=== PATIENT | female | born 1960 | race Caucasian/White ===

== ENCOUNTER 2016-09-17 14:23 | Inpatient (IN) | payer MEDICARE, MEDICAID ==
[~2016-09-17] VITALS: Ht 160 cm; Wt 64.6 kg
[~2016-09-17 14:23] MED LIST: ALBU18HF INH; ASPI-973 PO; AZIT250T4 PO; DIVA500T14 PO; FERR-83 PO; Glycopyrrolate 0.2 MG/ML 1mL Inj ONE; LORA10CA PO; LORA1TAB PO; Lidocaine PF 1% 30 mL Inj ONE; METO-272 PO; NITR0.4T SL; OMEP20CA11 PO; PRE20 PO; Propofol 10,000 mCg/mL 20 mL Inj ONE; QUET200T PO; RANI150C4 PO; TRAZ-118 PO; VENL150C98 PO
[2016-09-17 14:29] VITALS: BP 151/71; PULSE 70; RESP 20; O2SAT 97
[2016-09-17 14:39] LABS: BASOPHILS % (AUTO) 0.1 % (0-3); EOSINOPHILS % (AUTO) 0.2 % (0-5); MONOCYTES % (AUTO) 6.9 % (4-12); Mean Corpuscular Hemoglobin 30.4 pg (27.0-35.0); Mean Corpuscular Volume 89.2 fL (81-100); NEUTROPHILS % (AUTO) 76.4 % (40-74); Platelet Count 290 bil/L (150-400)
[2016-09-17] MEDS ORDERED: ILOP2TAB2 PO (14:40)
[2016-09-17] MEDS ORDERED: QUET300T PO (14:40)
[2016-09-17] MEDS ORDERED: PRAZ1CAP2 PO (14:40)
[2016-09-17] MEDS ORDERED: QUET50TA PO (14:40)
[2016-09-17] MEDS ORDERED: ACET1TAB42 PO (14:40)
[2016-09-17] MEDS ORDERED: QUET300T44 PO (14:40)
[2016-09-17] MEDS ORDERED: LIP40 PO (14:40)
[2016-09-17] MEDS ORDERED: NICO1PAT16 TRANSDERM (14:40)
[2016-09-17] MEDS ORDERED: SYMINH INHALATION (14:40)
[2016-09-17] MEDS ORDERED: PSYL660P17 PO (14:40)
[2016-09-17] MEDS ORDERED: CYCL5TAB PO (14:40)
[2016-09-17] MEDS ORDERED: QUET50TA55 PO (14:40)
[2016-09-17] MEDS ORDERED: LORA0.5T PO (14:40)
[2016-09-17] MEDS ORDERED: Ondansetron 2 mg/mL 2 mL Inj ONE (14:54)
--- NOTE | 2016-09-17 15:27 | ED.REPORT ---
HPI-General Illness Date of Service Sep 17, 2016 ED Provider: Ubaldo Back MD Pt is a 55 y/o female w/ a hx of IBS, mental illness, presenting to the ED c/o N /V/D onset 3 days ago. She c/o associated upper abdominal cramping, headache while vomiting, acid reflux, and has not been able to keep any liquids or medications down. Pt denies hematuria, bloody stool, hematemesis, fever, chills , vision changes, chest pain, SOB, vaginal bleeding or discharge. She has had similar symptoms in the past which were thought to be caused by IBS and GERD. She describes her pain as sharp and non-radiating, without and methods of exacerbation or relief. She does smoke marijuana. Nursing Notes Stated Complaint: NAUSEA, VOMITING Chief Complaint: Female Abdominal Pain Nursing Notes Reviewed: Yes Allergies: Coded Allergies: Serotonin 5HT-3 Antagonists (Verified Allergy, Intermediate, rash, itching , 09/17/16) buspirone (Verified Allergy, Mild, itching, 09/17/16) bupropion (Verified Allergy, Unknown, Rash,Itching,, 09/17/16) sertraline (Verified Allergy, Unknown, Rash,Itching,, 09/17/16) lamotrigine (Verified Adverse Reaction, Mild, itching, 09/17/16) Scheduled Aspirin (Aspirin) 81 Mg Tablet 81 MG PO QAM Atorvastatin (Lipitor) 40 Mg Tablet 40 MG PO HS Budesonide/Formoterol 160-4.5 mcg Inh (Symbicort 160-4.5 mcg Inh) 120 Puff Inhaler 2 PUFF INHALATION BID Divalproex ER (Divalproex ER) 500 Mg Tab.er.24h 1,000 MG PO HS *DAILY DOSING ONLY* Swallowed whole without chewing to avoid local irritation of the mouth and throat. Iloperidone (Fanapt) 2 Mg Tablet 2 MG PO BID Metoprolol Succinate ER (Metoprolol Succinate ER) 50 Mg Tab.er.24h 50 MG PO QAM Nicotine 21 mg/24 hr Patch (Nicotine 21 mg/24 hr Patch) 1 Each Patch.dysq 1 PATCH TRANSDERM DAILY Omeprazole (Omeprazole) 20 Mg Capsule.dr 20 MG PO BIDAC Prazosin (Prazosin) 1 Mg Capsule 1 MG PO HS Quetiapine Fumarate (Seroquel) 300 Mg Tablet 300 MG PO HS Quetiapine Fumarate (Seroquel) 50 Mg Tablet 50 MG PO QAM Ranitidine (Ranitidine) 150 Mg Capsule 150 MG PO HS Trazodone (Trazodone) 100 Mg Tablet 400 MG PO HS Venlafaxine ER (Venlafaxine ER) 150 Mg Cap.er.24h 300 MG PO QAM Scheduled PRN Acetaminophen/Codeine 300-30mg (Acetaminophen/Codeine 300-30mg) 1 Each Tablet 1- 2 TABLET PO Q4H PRN PRN Pain Albuterol Sulfate (Ventolin HFA Inhaler) 200 Puff/18 Gm Inhaler 2 PUFF INH Q4 PRN PRN For Wheezing Cyclobenzaprine (Cyclobenzaprine) 5 Mg Tablet 5 MG PO TID PRN PRN Spasm Loratadine (Claritin) 10 Mg Capsule 10 MG PO DAILY PRN PRN For Congestion Lorazepam (Lorazepam) 0.5 Mg Tablet 0.5-1 MG PO BID PRN PRN For Insomnia Nitroglycerin SL (Nitrostat) 0.4 Mg Tab.subl 0.4 MG SL Q5MIN PRN PRN For Chest Pain Psyllium Husk (Metamucil) 3.4 Gram/5.4 Gram Powder 3.4 GM PO DAILY PRN PRN For Constipation General Time Seen by MD: 15:21 Chief Complaint Other (nvd) Hx Obtained From: Patient, EMS Arrived By: Ambulance Sudden in Onset?: No Onset Occurred: 3 days ago Symptom Duration: Since onset Location: : Abdomen Quality: Cramping Severity: Current: Mild Severity: Maximum: Moderate Similar Sx Previous: Yes Past Medical History Past Medical History Notes: PCP: Dr. Curran Past Medical History Tobacco Dependency Asthma History of Alcoholism IBS GERD Hypertension "Irregular heartbeat" Hx pneumonia Distant hx of seizures Hx hemorrhoids Hx kidney stones Hx UTI Anxiety Bipolar disorder Depression PTSD Dissociative Identity disorder Past Surgical History Hysterectomy with bilateral oophorectomy Cholecystectomy Tonsillectomy Family History noncontributory Smoking History Current Every Day Smoker, Heavy Tobacco Smoker Social History Alcohol Use: In recovery Drug Use: THC Other Social History: Lives alone, Local resident Ambulatory Status Independent Review of Systems Full Review of Systems Constitutional: Denies: Chills, Fever Respiratory: Denies: Non-productive cough, Shortness of breath Cardiovascular: Denies: Chest pain, Dyspnea on exertion GI: Reports: Abdominal pain, Diarrhea, Nausea, Vomiting, Denies: Bloody/tarry stool, Hematemesis, Hematochezia Female: Denies: Hematuria, Vaginal bleeding - abnl, Vaginal discharge Neurologic: Reports: Headache, Denies: Vision change Complete sys rev & neg: except as marked. Physical Exam Constitutional: Well-developed, well-nourished. Not diaphoretic. Head: Normocephalic and atraumatic. Mouth/Throat: Oropharynx is clear and mildly dry. No oropharyngeal exudate. Eyes: EOM are normal. Pupils are equal, round, and reactive to light. Neck: Supple, no tracheal deviation. Cardiovascular: Normal rate, regular rhythm. Equal and intact distal pulses throughout. Pulmonary/Chest: Effort normal and breath sounds normal. No respiratory distress. Abdominal: Soft. No distension. Epigastric tenderness, no focal lower abdominal tenderness or rebound or guarding. Bowel sounds present. Musculoskeletal: Range of motion grossly intact, moving all extremities. Neurological: AOx3. Grossly nonfocal exam. Strength and sensation intact and equal to bilateral upper and lower extremities. Skin: Warm and dry, no rashes or pallor appreciated. Psychiatric: Appropriate mood and affect. Behavior appears normal. Vital Signs Vital Signs Date Time Temp Pulse Resp B/P Pulse Ox O2 Delivery O2 Flow Rate FiO2 09/17/16 17:29 70 171/80 95 Room Air 168/81 166/96 09/17/16 15:53 70 18 155/101 97 Room Air 09/17/16 14:29 36.9 70 20 151/71 97 Room Air Initial VS: Reviewed, Vital signs normal Interpretation & Diagnostics Lab Results Interpretation Result Diagram: 09/19/16 0900 09/19/16 0900 Test 09/17/16 14:36 09/17/16 14:54 09/17/16 15:05 09/17/16 18:21 Neutrophils (%) (Auto) 76.4% (40-74) Lymphocytes (%) (Auto) 16.0% (14-46) Monocytes (%) (Auto) 6.9% (4-12) Eosinophils (%) (Auto) 0.2% (0-5) Basophils (%) (Auto) 0.1% (0-3) Hold Purple Top Tube Received (Received) Prothrombin Time 10.2sec (8.1-12.5) Prothromb Time International Ratio 0.95ratio Hold Blue Top Tube Received (Received) Lactic Acid Level 1.7mmol/L (0.4-2.0) Hold [place] Top Tube Received (Received) Hold [place] Top Tube Received (Received) Magnesium Level 1.8mg/dL (1.6-2.6) Total Bilirubin 0.4mg/dL (0.0-1.2) Aspartate Amino Transf (AST/SGOT) 13U/L (0-50) Alanine Aminotransferase (ALT/SGPT) 9U/L (0-32) Alkaline Phosphatase 78U/L (25-150) Total Protein 7.1g/dL (6.4-8.4) Albumin 4.2g/dL (3.4-5.0) Lipase 16U/L (13-60) Urine Color Yellow (YELLOW) Urine Appearance Clear (CLEAR,HAZY) Urine pH 6.0 (5.0-8.0) Urine Specific [place] 1.026 (1.003-1.035) Urine Protein 30mg/dL (NEG,TRACE) Urine Glucose (UA) Negativemg/dL (NEGATIVE) Urine Ketones 15mg/dL (NEGATIVE) Urine Occult Blood Small (NEGATIVE) Urine Nitrite Positive (NEGATIVE) Urine Bilirubin Negative (NEGATIVE) Urine Urobilinogen Normalmg/dL (NORMAL) Urine Leukocyte Esterase Trace (NEGATIVE) Urine RBC 3-10/hpf (0-2) Urine WBC >50/hpf (0-5) Urine Epithelial Cells Moderate/hpf (NONE-MOD) Urine Crystals None seen (NONE SEEN) Urine Bacteria Many/hpf (NONE-FEW) Urine Hyaline Casts None/lpf (NONE) Urine Granular Casts None seen (NONE SEEN) Urine Waxy Casts None seen (NONE SEEN) Urine Red Blood Cell Casts None seen (NONE SEEN) Urine White Blood Cell Casts None seen (NONE SEEN) Urine Mucus None seen (None Seen) Urine Trichomonas None seen (NONE SEEN) Urine Yeast None (NONE SEEN) Urinalysis Comment None Urine Culture Reflexed Indicated ECG Interpretation ECG Interpretation: Sinus arrhythmia rate 61 Time: 17:30 Interpreted by: ED physician Normal ECG Interpretation: No acute ischemic changes CT Abd / Pelvis Interpretation IMPRESSION: 1. ? Mild diffuse colonic wall thickening involving the proximal transverse colon and possibly sigmoid colon. In absence of oral contrast, the finding could be caused by artifact due to like of distention. Recommend clinical correlation. 2. Normal appendix. 3. Diverticulosis. No active diverticulitis. 4. Small hiatal hernia. 5. Mild hepatic steatosis. 6. A 4 mm right adrenal nodule, most likely benign. Dictated by: Avila Doll M.D. on 09/17/2016 at 18:58 Approved by: Avila Doll M.D. on 09/17/2016 at 19:08 Study type: Abdominal CT IV contrast Interpretation / Wet Read by: Interpret - Radiologist Re-Eval/Medical Decision Med Decision/Clinical Course 55-year-old female presenting to the ED for evaluation of nausea, vomiting, diarrhea over the past several days. Initial laboratory studies notable for a leukocytosis of 14.2, rest of labs without any acute abnormality that would account for her symptoms. Her urinalysis does demonstrate findings consistent with a UTI. Upon reassessment, patient still with significant pain despite treatment. CT scan obtained and demonstrates diffuse, mild colonic wall thickening; unclear significance of this and unclear if this would account for her symptoms at this time. Despite receiving multiple doses of anti-emetics, patient still with intractable vomiting. Given her persistent vomiting despite therapy here, plan admission for further management and evaluation, symptomatic control. Patient agreeable to the plan as stated, no further questions. Time of Eval: 21:04 Patient Status: Condition improved, Mild relief Re-Evaluation/Progress Note: Pt rechecked. Discussed discharge vs admission. Still has intractable vomiting. Pt understands and agrees with plan for admission. All questions addressed. Consultation : Referral / Consult Name: Osmin Rondon MD Consulted With: Hospitalist Call Returned at: 21:13 Die Inspector: Will see patient, Agrees with eval, Agrees with plan, Accepts admit Counseled Regarding: Diagnosis, Lab results, Need for admission Discharge & Departure Primary Impression: Intractable vomiting Vomiting type: unspecified Nausea presence: with nausea Qualified Code: R11.2 - Nausea with vomiting, unspecified Additional Impressions: UTI (urinary tract infection) Urinary tract infection type: site unspecified Hematuria presence: without hematuria Qualified Code: N39.0 - Urinary tract infection, site not specified Dehydration Disposition: ADMITTED TO HOSPITAL Discharge Condition All VS Reviewed: Yes Condition: Improved Referrals: Lisha Cristina (PCP) Scribe Attestation Portions of this note were transcribed by Christian Whitaker. I, Dr. Back, personally performed the history, physical exam and medical decision-making; I reviewed and confirmed the accuracy of the information in the transcribed note. Signed by Ct Levin, 09/17/16 - 1700 copies to: Lisha Cristina William B MD Sep 17, 2016 15:27 CHRISTIAN WHITAKER Sep 17, 2016 16:49 None seen (NONE SEEN) Urine Mucus None seen (None Seen) Urine Trichomonas None seen (NONE SEEN) Urine Yeast None (NONE SEEN) Urinalysis Comment None Urine Culture Reflexed Indicated ECG Interpretation ECG Interpretation: Sinus arrhythmia rate 61 Time: 17:30 Interpreted by: ED physician Normal ECG Interpretation: No acute ischemic changes CT Abd / Pelvis Interpretation IMPRESSION: 1. ? Mild diffuse colonic wall thickening involving the proximal transverse colon and possibly sigmoid colon. In absence of oral contrast, the finding could be caused by artifact due to like of distention. Recommend clinical correlation. 2. Normal appendix. 3. Diverticulosis. No active diverticulitis. 4. Small hiatal hernia. 5. Mild hepatic steatosis. 6. A 4 mm right adrenal nodule, most likely benign. Dictated by: Avila Doll M.D. on 09/17/2016 at 18:58 Approved by: Avila Doll M.D. on 09/17/2016 at 19:08 Study type: Abdominal CT IV contrast Interpretation / Wet Read by: Interpret - Radiologist Re-Eval/Medical Decision Med Decision/Clinical Course Labs notable as below: CBC: leukocytosis of 14.2 otherwise unremarkable CMP: Unremarkable, lipase of 16 UA: consistent with UTI Orthostatics negative CT abd/pelvis: 1. ? Mild diffuse colonic wall thickening involving the proximal transverse colon and possibly sigmoid colon. In absence of oral contrast, the finding could be caused by artifact due to like of distention. Recommend clinical correlation. 2. Normal appendix. 3. Diverticulosis. No active diverticulitis. 4. Small hiatal hernia. 5. Mild hepatic steatosis. 6. A 4 mm right adrenal nodule, most likely benign. Time of Eval: 21:04 Patient Status: Condition improved, Mild relief Re-Evaluation/Progress Note: Pt rechecked. Discussed discharge vs admission. She would like to be admitted for intractable vomiting. Pt understands and agrees with plan for admission. All questions addressed. Consultation : Referral / Consult Name: Osmin Rondon MD Consulted With: Hospitalist Call Returned at: 21:13 Die Inspector: Will see patient, Agrees with eval, Agrees with plan, Accepts admit Counseled Regarding: Diagnosis, Lab results, Need for admission Discharge & Departure Primary Impression: Intractable vomiting Vomiting type: unspecified Nausea presence: with nausea Qualified Code: R11.2 - Nausea with vomiting, unspecified Additional Impressions: UTI (urinary tract infection) Urinary tract infection type: site unspecified Hematuria presence: without hematuria Qualified Code: N39.0 - Urinary tract infection, site not specified Dehydration Disposition: ADMITTED TO HOSPITAL Discharge Condition All VS Reviewed: Yes Condition: Improved Referrals: Lisha Cristina (PCP) Scribe Attestation Portions of this note were transcribed by Christian Whitaker. I, Dr. Back, personally performed the history, physical exam and medical decision-making; I reviewed and confirmed the accuracy of the information in the transcribed note. Signed by Ct Levin, 09/17/16 - 1700 copies to: Lisha Cristina William B MD Sep 17, 2016 15:27 CHRISTIAN WHITAKER Sep 17, 2016 16:49
[2016-09-17 15:37] LABS: Magnesium 1.8 mg/dL (1.6-2.6)
[2016-09-17 15:53] VITALS: BP 155/101; PULSE 70; RESP 18; O2SAT 97
[2016-09-17] MEDS ORDERED: 0.9% Sodium Chloride 1,000 ML IV ONE (17:04)
[2016-09-17] MEDS ORDERED: Promethazine Inj 25 MG in 0.9% Sodium Chloride 50 ML IV ONE (17:05)
[2016-09-17 17:19] LABS: INR 0.95 ratio
[2016-09-17 17:29] VITALS: BP_SYST 166; BP_SYST 168; BP_SYST 171; BP_DIAS 80; BP_DIAS 81; BP_DIAS 96; PULSE 70; O2SAT 95
[2016-09-17 18:51] LABS: APPEARANCE,URINE CLEAR (CLEAR,HAZY); COLOR,URINE YELLOW (YELLOW); OCCULT BLOOD,URINE SMALL (NEGATIVE); UROBILINOGEN,URINE NORMAL (NORMAL)
--- NOTE | 2016-09-17 19:10 | DRSVH ---
PROCEDURE: CT ABDOMEN AND PELVIS WITH CONTRAST ([id number]) INDICATIONS: 54 year-old woman with severe abdominal pain. TECHNIQUE: After the administration of intravenous contrast, 5 mm thick sections acquired from the diaphragm to the symphysis. 5 mm coronal and sagittal reformats were acquired. For radiation dose reduction, the following was used: automated exposure control, adjustment of mA and/or kV according to patient siz e. COMPARISON: [facility], CT, ABD/PELVIS W/CON ([facility]), 05/12/2013, 9:42. [facility], CT, CT ABD PELVIS W CON, 05/10/2015, 15:52. FINDINGS: Image quality: Excellent. ABDOMEN: Lung bases: Bibasilar scars or atelectasis. Heart size is normal. There is a small hiatal hernia. Solid organs: Mild hepatic fatty infiltration. Liver and spleen are normal in size and enhancement. A hypodensity adjacent to the falciform ligament is likely secondary to focal fat. Gallbladder is zee rgically absent. Biliary system is non dilated. Pancreas enhances normally. There is a 4 mm right a drenal nodule in the tip of the lateral limb, unchanged since 05/12/2013, most likely benign. Kidneys demonstrate normal size and enhancement, without hydronephrosis. Peritoneum and bowel: Bowel loops demonstrate normal wall thickness and caliber. There is maybe mil d colonic wall thickening involving the proximal transverse colon and possibly sigmoid colon. There a re scattered colonic diverticula. No evidence for active diverticulitis. Appendix is normal. No free fluid or air. Nodes and vessels: No retroperitoneal or mesenteric adenopathy by size criteria. Aorta and inferior vena cava are normal in size. Aortic and iliac artery calcification consistent with atherosclerosis . Miscellaneous: No ventral hernias. PELVIS: Genitourinary: Bladder wall thickness is normal. Miscellaneous: No inguinal hernias or adenopathy. Bones: No vertebral body compression fractures. IMPRESSION: 1. ? Mild diffuse colonic wall thickening involving the proximal transverse colon and possibly sigmoi d colon. In absence of oral contrast, the finding could be caused by artifact due to like of distenti on. Recommend clinical correlation. 2. Normal appendix. 3. Diverticulosis. No active diverticulitis. 4. Small hiatal hernia. 5. Mild hepatic steatosis. 6. A 4 mm right adrenal nodule, most likely benign. Dictated by: Avila Doll M.D. on 09/17/2016 at 18:58 Approved by: Avila Doll M.D. on 09/17/2016 at 19:08
[2016-09-17 22:10] VITALS: BP 140/97; PULSE 66; RESP 16; O2SAT 96
[2016-09-17] MEDS ORDERED: Polyethylene Glycol (PEG) 17 Gm Powder PO PRN (22:35)
[2016-09-17] MEDS ORDERED: Alum-Mag Hydrox-Simeth 30 mL Suspension PO PRN (22:35)
[2016-09-17] MEDS ORDERED: Ondansetron 2 mg/mL 2 mL Inj IVPUSH PRN (22:35)
[2016-09-17 22:44] VITALS: BP 140/97; PULSE 66; RESP 16; O2SAT 96
--- NOTE | 2016-09-17 23:02 | PCM.HPMED ---
Subjective Date of Service Sep 17, 2016 Primary Provider: Admitting Physician: Osmin Rondon MD Primary Care Physician: Lisha Cristina Attending Physician: Osmin Rondon MD Chief Complaint: Nausea, vomiting and diarrhea History of Present Illness: 55 year old female with h/o IBS, mental illness, presented to the ED c/o nausea , vomiting and diarrhea that started three days ago. She also c/o upper abdominal cramping, headache while vomiting, acid reflux, and has not been able to keep any liquids or medications down. Pt denies hematuria, bloody stool, hematemesis, fever, chills, vision changes, chest pain, SOB, vaginal bleeding or discharge. She has had similar symptoms in the past which were thought to be caused by IBS and GERD. She describes her pain as sharp and non-radiating, without and methods of exacerbation or relief. She does smoke marijuana. Review of Systems: Positive as per noted in HPI, otherwise a complete 14-point review of system is negative. Allergies Coded Allergies: buspirone (Verified Allergy, Mild, itching, 04/14/16) Serotonin 5HT-3 Antagonists (Verified Allergy, Unknown, 04/14/16) bupropion (Verified Allergy, Unknown, Rash,Itching,, 04/14/16) sertraline (Verified Allergy, Unknown, Rash,Itching,, 04/14/16) lamotrigine (Verified Adverse Reaction, Mild, itching, 04/14/16) PMH Tobacco Dependency Asthma History of Alcoholism IBS GERD Hypertension "Irregular heartbeat" Hx pneumonia Distant hx of seizures Hx hemorrhoids Hx kidney stones Hx UTI Anxiety Bipolar disorder Depression PTSD Dissociative Identity disorder Surgical History Hysterectomy with bilateral oophorectomy Cholecystectomy Tonsillectomy Social History Hx Alcohol Use: No Hx Substance Use: Yes (marijuana daily) Hx Tobacco Use: Yes (1/2 PPD) Smoking Status: Current Every Day Smoker, Heavy Tobacco Smoker Exam Vital Signs Vital Sign - Last Date Time Temp Pulse Resp B/P Pulse Ox O2 Delivery O2 Flow Rate FiO2 09/17/16 22:44 36.9 66 16 140/97 96 Room Air Exam Constitutional: Well-developed, well-nourished. Not diaphoretic. Head: Normocephalic and atraumatic. Mouth/Throat: Oropharynx is clear and mildly dry. No oropharyngeal exudate. Eyes: EOM are normal. Pupils are equal, round, and reactive to light. Neck: Supple, no tracheal deviation. Cardiovascular: Normal rate, regular rhythm. Equal and intact distal pulses throughout. Pulmonary/Chest: Effort normal and breath sounds normal. No respiratory distress. Abdominal: Soft. No distension. Epigastric tenderness, no focal lower abdominal tenderness or rebound or guarding. Bowel sounds present. Musculoskeletal: Range of motion grossly intact, moving all extremities. Neurological: AOx3. Grossly nonfocal exam. Strength and sensation intact and equal to bilateral upper and lower extremities. Skin: Warm and dry, no rashes or pallor appreciated. Psychiatric: Appropriate mood and affect. Behavior appears normal. Lab and Diagnostics Result Diagram: 09/17/16 1436 09/17/16 1505 X-Rays, CTs and MRIs CT Abd / Pelvis Interpretation IMPRESSION: 1. ? Mild diffuse colonic wall thickening involving the proximal transverse colon and possibly sigmoid colon. In absence of oral contrast, the finding could be caused by artifact due to like of distention. Recommend clinical correlation. 2. Normal appendix. 3. Diverticulosis. No active diverticulitis. 4. Small hiatal hernia. 5. Mild hepatic steatosis. 6. A 4 mm right adrenal nodule, most likely benign. 12-lead ECG Normal ECG Interpretation: No acute ischemic changes Assessment & Plan 55 y/o female with h/o IBS admitted with intractable nausea and vomiting. Nausea / vomiting / diarrhea - NPO - IV hydration - Will send stool cultures, ova and parasites - anti emetics prn DVT ppx: Heparin GI ppx: PPI Pain Evaluation: Adequate Pain Control GI Prophylaxis: Proton Pump Inhibitor VTE Prophylaxis: Sub-Q Heparin (Unfractionated) Resuscitation Status: CPR: Attempt Resuscitation Osmin Rondon MD Sep 17, 2016 23:02
[2016-09-17 23:07] VITALS: BP 172/81; PULSE 64; RESP 18; O2SAT 92
[2016-09-18] VITALS (8 sets, daily range): BP systolic 128–170; BP diastolic 65–80; PULSE 60–87; RESP 16–20; O2SAT 90–100
[2016-09-18] MEDS: MetoCLOpramide 5 mg/mL 2 mL Inj IVPUSH PRN ×2 (05:12→11:45)
[2016-09-18] MEDS ORDERED: Pantoprazole 40 mg ER24 Tablet PO SCH (07:30)
[2016-09-18] MEDS ORDERED: LORazepam 0.5 mg Tablet PO PRN (08:10)
[2016-09-18] MEDS ORDERED: Albuterol 2.5 mg/3 mL Inhalation Solution NEB PRN (08:10)
[2016-09-18] MEDS ORDERED: ILOPERIDONE PO SCH (08:30)
[2016-09-18] MEDS: Venlafaxine XR 75 mg ER24 Capsule PO SCH (08:30)
[2016-09-18] MEDS: Heparin 5,000 Unit/mL Inj SUBQ SCH ×2 (09:22→21:35)
[2016-09-18] MEDS: MeTOProlol XL 50 mg ER24 Tablet PO SCH (09:22)
[2016-09-18] MEDS: Codeine-APAP 30-300 mg Tablet PO PRN ×3 (10:44→21:50)
--- NOTE | 2016-09-18 11:22 | NUR ---
Social Work: Initial Assessment Data: Pt is a 55 y/o female admitted for intractable vomiting/UTI. Pt's PCP is Dr Cristina, pt's insurance is Medicare with [facility] supp. EMR reviewed. Readmit score not listed. ROD HANGER met with pt at bedside, role explained. Pt states she lives in [place] alone in a single story home where avery uses no DME, does not drive, has no hx of HH or SNF, no LTC or VA benefits, and is not a caregiver. Pt has [employer], 3 days per week and states they assist her with errands. Pt plans to d/c home at d/c via POV with [facility] caregiver if possible. Pt's [facility] CM is Dayanara Benito. ROD HANGER requested [facility] specialist to fax clinicals. Likely no d/c planning needs at this time. ROD HANGER will continue to follow if needs arise. Assessment: Pt with [facility]. Plan: Pt will d/c home via POV with [facility] caregiver when medically stable. Likely no d/c planning needs at this time. ROD HANGER will continue to follow if needs arise. ANNALISA Jones Addendum: 09/18/16 at 1125 by DUDLEY LINDSEY Amended: Links added.
--- NOTE | 2016-09-18 12:10 | NUR ---
Pain/Nausea: Patient complained of generalized head and back pain 7/10 on pain scale. Tylenol w/codeine administered. On reassessment, patient states pain level decreased to 1/10. Patient continues to have nausea, no vomiting noted as yet. Reglan IV administered. Patient started on clear liquids. Taking sips of chicken broth and water. Tolerating well thus far. Will continue to monitor status of nausea. Addendum: 09/18/16 at 1816 by EDGARDO JOSE RN Patient continues to sip on clear liquids, tolerating well, nausea relieved per patient, denies vomiting. Complains of burning sensation in throat. Maalox administered.
--- NOTE | 2016-09-18 13:40 | NUR ---
Case Managment- THOMPSON explained and signed by patient at 1225. Copy given to patient. Original placed in chart. Iza BARBER/ MARIE
--- NOTE | 2016-09-18 13:45 | NUR ---
Faxed clinicals to [facility] CM per NETWORK PROGRAM MANAGER
[2016-09-18] MEDS: cefTRIAXone Inj 1,000 MG in Dextrose 5% Minibag Plus 50 ML IV SCH (21:34)
[2016-09-18] MEDS: Fluticasone-Salmeterol 500-50 Inhaler INHALATION SCH (21:34)
[2016-09-18] MEDS: Divalproex (QD) 500 mg ER24 Tablet PO SCH (21:35)
[2016-09-19] VITALS (7 sets, daily range): BP systolic 119–175; BP diastolic 68–95; PULSE 59–68; RESP 16–18; O2SAT 90–98
--- NOTE | 2016-09-19 00:30 | PCM.PNMED ---
Subjective Date of Service Sep 18, 2016 Subjective PAtient is able to tolerate clears, nausea has improved. Reviewed abd CT scan and stool PCR results with pt. She says this is her third admission and she is started to wonder what is going on. She has had a colonoscopy and an eGD wi last 1-2 yrs. Sh realls her doctor told her she had polyps Exam Vital Signs Vital Sign - Last Date Time Temp Pulse Resp B/P Pulse Ox O2 Delivery O2 Flow Rate FiO2 09/18/16 05:13 36.8 70 20 149/80 90 Room Air Intake and Output 09/17/16 09/17/16 09/18/16 Cumulative From/Thru 15:00 23:00 07:00 09/17/16 14:29 - 09/18/16 06:51 Intake Total 1000 ml 0 ml 1000 ml Output Total 475 ml 475 ml Balance 1000 ml -475 ml 525 ml Intake Oral 0 ml 0 ml IV Total 1000 ml 1000 ml Output Urine Total 325 ml 325 ml Urine/Stool Mix 125 ml 125 ml Emesis 25 ml 25 ml Exam Exam: HEENT: NCAT General NAD Heart: RRR, no s3/s4 Lungs: CTA, no crackles or wheezes Abd: Tenderness over epigastrium, hyperactive bowel sounds Neuro: No focal deficits IVs and Medications Medications Reviewed: Medications were reviewed in detail Lab and Diagnostics Result Diagram: 09/17/16 1436 09/17/16 1505 X-Rays, CTs and MRIs CT Abd / Pelvis Interpretation IMPRESSION: 1. ? Mild diffuse colonic wall thickening involving the proximal transverse colon and possibly sigmoid colon. In absence of oral contrast, the finding could be caused by artifact due to like of distention. Recommend clinical correlation. 2. Normal appendix. 3. Diverticulosis. No active diverticulitis. 4. Small hiatal hernia. 5. Mild hepatic steatosis. 6. A 4 mm right adrenal nodule, most likely benign. 12-lead ECG Normal ECG Interpretation: No acute ischemic changes Assessment & Plan 55 y/o female with h/o IBS admitted with intractable nausea and vomiting. Epigastric pain, POA active -- Review prior EGD, colonoscopy reports 08/2015: Normal upper endoscopy, status post biopsy. -- Consult Dr. Vences from GI if needed -- Nausea / vomiting / diarrhea, POA active: IBS vs colitis (infectious vs inflamm ) vs diverticulosis -- Leukocytosis but no fevers. -- CT showed sigmoid and transverse colitis -- 09/05 colonoscopy: Sigmoid diverticulosis, Small internal hemorrhoids. One cm sigmoid polyp removed by hot snare polypectomy. - Clear liquids - IV hydration - Will send stool cultures, ova and parasites - anti emetics prn UTI, POA active -- She is endorisng increased freq and hesitancy -- URine cx showed e coli -- Ceftriaxone 1 g Q24H -- Follow sensitivities Hypertension chronic stable -- Continue home meds Anxiety/Depression chronic active -- Cont home meds DVT ppx: Heparin GI ppx: PPI Pain Evaluation: Adequate Pain Control GI Prophylaxis: Proton Pump Inhibitor VTE Prophylaxis: Sub-Q Heparin (Unfractionated) Resuscitation Status: CPR: Attempt Resuscitation Time spent 25 min Eda Cain DO Sep 18, 2016 08:30
[2016-09-19] MEDS ORDERED: Pantoprazole 4 mg/mL 10 mL Inj IVPUSH SCH (07:30)
[2016-09-19] MEDS: MetoCLOpramide 5 mg/mL 2 mL Inj IVPUSH PRN (08:47)
[2016-09-19] MEDS: Famotidine Inj 20 MG in IV Premix 1 EACH IV SCH ×2 (09:34→21:44)
[2016-09-19] MEDS: MeTOProlol XL 50 mg ER24 Tablet PO SCH (09:42)
[2016-09-19] MEDS: Venlafaxine XR 75 mg ER24 Capsule PO SCH (09:42)
[2016-09-19] MEDS: Fluticasone-Salmeterol 500-50 Inhaler INHALATION SCH ×2 (09:42→21:44)
[2016-09-19] MEDS: Codeine-APAP 30-300 mg Tablet PO PRN ×3 (09:42→22:02)
[2016-09-19] MEDS: Heparin 5,000 Unit/mL Inj SUBQ SCH ×2 (09:43→21:43)
[2016-09-19 11:50] LABS: Mean Corpuscular Hemoglobin 30.2 pg (27.0-35.0); Mean Corpuscular Volume 90.5 fL (81-100)
--- NOTE | 2016-09-19 13:25 | NUR ---
Inpatient status effective today. SUKHDEV signed.
--- NOTE | 2016-09-19 13:27 | PCM.CHPMED ---
Subjective Date of Service: Sep 19, 2016 Provider requesting consult: Eda Cain DO Primary Physician: Admitting Physician: Eda Cain DO Primary Care Physician: Lisha Cristina Attending Physician: Eda Cain DO Admit Status: From the Emergency Department Chief Complaint: Chief Complaint: vomiting and diarrhea History of Present Illness: GASTROENTEROLOGY CONSULTATION 55 yo female with IBS, GERD, diverticulits, and daily marijuana use presented to the emergency department with worsening nausea, vomiting, diarrhea. She states that similar symptoms have been going on for a few years periodically. She is having symptoms more often than not and having cycles of diarrhea and constipation. She witnessed some melena just prior to this hospitalization. She had very small amount of red blood during one episode of emesis. She is having sharp epigastric pain that bhatt upward along midline. She endorses headache, difficulty swallowing, heartburn, chills, sweats, but no fever. She has had decreased appetite and will at times go up to 2 weeks without eating. She has had some episodes of bowel incontinence. She is feeling better with medication since being in the hospital, her last episode of emesis was 2 nights ago (the night of her arrival). She was found to have a UTI. Review of Systems: A comprehensive review of systems was conducted with the patient and found to be negative except as above in the History of Present Illness. PMH Past Medical History IBS GERD Tobacco Dependency Asthma History of Alcoholism Diverticulosis with history of diverticulitis Hypertension Hx hemorrhoids Hx kidney stones Hx UTI Anxiety Bipolar disorder Depression PTSD Dissociative Identity disorder Surgical History Hysterectomy with bilateral salpingo-oophorectomy for cervical cancer Cholecystectomy section Tonsillectomy Allergies: Coded Allergies: Serotonin 5HT-3 Antagonists (Verified Allergy, Intermediate, rash, itching , 09/17/16) buspirone (Verified Allergy, Mild, itching, 09/17/16) bupropion (Verified Allergy, Unknown, Rash,Itching,, 09/17/16) sertraline (Verified Allergy, Unknown, Rash,Itching,, 09/17/16) lamotrigine (Verified Adverse Reaction, Mild, itching, 09/17/16) Family History Family History Patient is unsure of family history. She notes that multiple family members have cancer but she is unsure if it is colon cancer. She does not know if anyone else in her family has inflammatory bowel disease, or celiac disease Social History Hx Alcohol Use: Yes (former alcoholic, last drink 2 months ago.)Hx Substance Use: Yes (marijuana daily, distant history of IV cocaine use)Hx Tobacco Use: Yes (1/2 PPD) Smoking Status: Current Every Day Smoker (1/4 pack per day) Living Arrangement: Alone Exam Vital Signs Vital Sign - Last Date Time Temp Pulse Resp B/P Pulse Ox O2 Delivery O2 Flow Rate FiO2 09/19/16 09:56 68 16 98 Room Air 09/19/16 08:50 36.9 175/91 Intake and Output 09/18/16 09/18/16 09/19/16 Cumulative From/Thru 15:00 23:00 07:00 09/17/16 14:29 - 09/19/16 05:15 Intake Total 120 ml 1120 ml Output Total 800 ml 1275 ml Balance -680 ml -155 ml Intake Oral 120 ml 120 ml IV Total 1000 ml Output Urine Total 325 ml Urine/Stool Mix 800 ml 925 ml Emesis 25 ml General: Alert, Oriented X3, Cooperative, No Acute Distress Head: Normal Mouth: Mucous Membr Moist/[place] Neck: Supple Chest & Lungs: Chest Wall Normal, Auscultation (clear bilaterally) Cardiovascular: Regular Rate/Rhythm, No Murmurs/Rubs/Gallops Abdomen: Tender (mildly), Non-distended, Normoactive bowel tones, Soft Neurological: Grossly Neurologically Intact Lab and Diagnostics Labs Stool PCR negative Klebsiella urinary tract infection Result Diagram: 09/19/16 0900 09/19/16 0900 X-Rays, CTs and MRIs PROCEDURE: CT ABDOMEN AND PELVIS WITH CONTRAST IMPRESSION: 1. ? Mild diffuse colonic wall thickening involving the proximal transverse colon and possibly sigmoid colon. In absence of oral contrast, the finding could be caused by artifact due to like of distention. Recommend clinical correlation. 2. Normal appendix. 3. Diverticulosis. No active diverticulitis. 4. Small hiatal hernia. 5. Mild hepatic steatosis. 6. A 4 mm right adrenal nodule, most likely benign. Dictated by: Avila Doll M.D. on 09/17/2016 at 18:58 Additional Diagnostics: PREVIOUS COLONOSCOPY EGD DATE OF SERVICE: 09/18/2015 TYPE OF OPERATION: EGD, biopsy. Colonoscopy with biopsy and snare polypectomy. PREOPERATIVE DIAGNOSIS: Abdominal pain and diarrhea. POSTOPERATIVE DIAGNOSES: 1. Normal upper endoscopy, status post biopsy. 2. Sigmoid diverticulosis. 3. Small internal hemorrhoids. 4. One cm sigmoid polyp removed by hot snare polypectomy. IMPRESSION: 1. Normal upper endoscopy, status post biopsy. 2. Small internal hemorrhoids. 3. Sigmoid diverticulosis. 4. A 1 cm sigmoid polyp removed by hot snare polypectomy. 5. Extremely tortuous sigmoid colon, most likely due to adhesions from prior surgery. RECOMMENDATIONS: 1. Await pathology results. 2. If tubular adenoma, then next colonoscopy will be in 3 years. 3. Follow up with GI clinic as needed. PREVIOUS PATHOLOGY DATE COLLECTED:09/18/2015 FINAL DIAGNOSIS: A.DUODENUM BIOPSY: FRAGMENTS OF NORMAL-APPEARING DUODENUM MUCOSA. Normal delicate mucosal villi present. Negative for significant inflammation, dysplasia and malignancy. B.ANTRUM BIOPSY: SUPERFICIAL MUCOSAL HYPEREMIA WITHOUT ASSOCIATED SIGNIFICANT INFLAMMATION INVOLVING ANTRAL MUCOSA. Negative for evidence of Helicobacter. Negative for intestinal metaplasia. Negative for dysplasia and malignancy. C.GASTRIC BODY BIOPSY: MINIMAL SUPERFICIAL CHRONIC GASTRITIS INVOLVING FUNDIC MUCOSA. Negative for evidence of Helicobacter. Negative for intestinal metaplasia. Negative for dysplasia and malignancy. D.TERMINAL ILEUM BIOPSY: FRAGMENTS OF NORMAL-APPEARING SMALL BOWEL MUCOSA. Negative for granulomas. Negative for significant inflammation, dysplasia and malignancy. E.RANDOM COLON BIOPSIES: FRAGMENTS OF NORMAL-APPEARING COLON MUCOSA. Negative for significant architectural distortion. Negative for significant inflammation, dysplasia and malignancy. F.SIGMOID COLON POLYP: TUBULAR ADENOMA. Assessment & Plan Assessment 55-year-old female with IBS, GERD, tobacco and marijuana use who presents with vomiting, diarrhea, and severe abdominal pain. Stool PCR is negative making this unlikely to be due to infectious etiology. Her chronic cyclical diarrhea and constipation likely related to IBS. Tubular adenoma status post polypectomy present on colonoscopy 1 year ago. Normal EGD at that time. Melena could be due to upper or lower GI bleed. Vomiting could be present due to GERD, migraine associated, or exacerbated by daily marijuana use. She may have some element of gastroparesis as she has had some elevated blood sugars while being here in the hospital even though she has not formally been diagnosed with diabetes or pre diabetes. Recommendations: 1. EGD colonoscopy scheduled for 9 AM tomorrow 2. Bowel prep this evening, clear liquid diet until that time 3. Continue famotidine 4. Continue ceftriaxone daily for urinary tract infection Thank you for this interesting consult. Problems: Pain Evaluation: Adequate Pain Control GI Prophylaxis: Proton Pump Inhibitor VTE Prophylaxis: Sub-Q Heparin (Unfractionated) Resuscitation Status: CPR: Attempt Resuscitation copies to: Marcus Vences MD, Erika R DO Sep 19, 2016 13:27
[2016-09-19] MEDS ORDERED: PEG/Electrolytes 4,000 mL Solution PO ONE (16:00)
--- NOTE | 2016-09-19 17:56 | NUR ---
Nausea/Bowel Prep: Patient complained of episode of nausea this am. Reglan administered. On reassessment, patient states nausea relieved. Scheduled for EGD/Colonoscopy in am. Patient educated on Colyte bowel prep. Started at 1600. Patient tolerating thus far.
[2016-09-19] MEDS: cefTRIAXone Inj 1,000 MG in Dextrose 5% Minibag Plus 50 ML IV SCH (21:46)
[2016-09-19] MEDS: Divalproex (QD) 500 mg ER24 Tablet PO SCH (22:01)
--- NOTE | 2016-09-19 23:52 | PCM.PNMED ---
Subjective Date of Service Sep 19, 2016 Subjective PAtient is frankie nd examined. One bout of nausea this am, imprved after reglan. Patient is notified of plans to do EGD, Colonoscopy in the am. No otehr concerns Exam Vital Signs Vital Sign - Last Date Time Temp Pulse Resp B/P Pulse Ox O2 Delivery O2 Flow Rate FiO2 09/19/16 09:56 68 16 98 Room Air 09/19/16 08:50 36.9 175/91 Intake and Output 09/18/16 09/18/16 09/19/16 Cumulative From/Thru 15:00 23:00 07:00 09/17/16 14:29 - 09/19/16 05:15 Intake Total 120 ml 1120 ml Output Total 800 ml 1275 ml Balance -680 ml -155 ml Intake Oral 120 ml 120 ml IV Total 1000 ml Output Urine Total 325 ml Urine/Stool Mix 800 ml 925 ml Emesis 25 ml IVs and Medications Medications Reviewed: Medications were reviewed in detail Lab and Diagnostics Result Diagram: 09/19/16 0900 09/19/16 0900 X-Rays, CTs and MRIs CT Abd / Pelvis Interpretation IMPRESSION: 1. ? Mild diffuse colonic wall thickening involving the proximal transverse colon and possibly sigmoid colon. In absence of oral contrast, the finding could be caused by artifact due to like of distention. Recommend clinical correlation. 2. Normal appendix. 3. Diverticulosis. No active diverticulitis. 4. Small hiatal hernia. 5. Mild hepatic steatosis. 6. A 4 mm right adrenal nodule, most likely benign. 12-lead ECG Normal ECG Interpretation: No acute ischemic changes Assessment & Plan 55 y/o female with h/o IBS admitted with intractable nausea and vomiting. Epigastric pain, POA active -- Review prior EGD, colonoscopy reports 08/2015: Normal upper endoscopy, status post biopsy. -- Consult Dr. Vences: He will repeat scope in the AM -- Pharmacy switched her to Pepcid IV due to Protonix shortage -- Nausea / vomiting / diarrhea, POA active: IBS vs colitis (infectious vs inflamm ) vs diverticulosis -- Leukocytosis but no fevers. -- CT showed sigmoid and transverse colitis -- 09/05 colonoscopy: Sigmoid diverticulosis, Small internal hemorrhoids. One cm sigmoid polyp removed by hot snare polypectomy. - Clear liquids - IV hydration - Will send stool cultures, ova and parasites - anti emetics prn -- GI/Dr. Vences plans to do a colonoscopy in the am UTI, POA active -- She is endorsing increased freq and hesitancy -- URine cx showed klebsiella -- Ceftriaxone 1 g Q24H -- Follow sensitivities: Sensitive to Ceftriaxon and augmentin Hypertension chronic stable -- Continue home meds Anxiety/Depression chronic active -- Cont home meds DVT ppx: Heparin GI ppx: PPI Patient Status: Patient was admitted under inpatient status with expected length of stay greater than two midnights due to severity of presenting symptoms , risk of adverse event, and complexity of treatment plan. Pain Evaluation: Adequate Pain Control GI Prophylaxis: Proton Pump Inhibitor VTE Prophylaxis: Sub-Q Heparin (Unfractionated) Resuscitation Status: CPR: Attempt Resuscitation Time spent 25 min Eda Cain DO Sep 19, 2016 13:51
[2016-09-20] VITALS (13 sets, daily range): BP systolic 114–173; BP diastolic 66–88; PULSE 52–68; RESP 14–19; O2SAT 90–99
[2016-09-20] MEDS: Codeine-APAP 30-300 mg Tablet PO PRN ×4 (05:38→20:49)
[2016-09-20] MEDS: Heparin 5,000 Unit/mL Inj SUBQ SCH ×2 (07:14→20:21)
--- NOTE | 2016-09-20 07:39 | NUR ---
Bowel Prep/GI Bowel prep for Colonoscopy today 0900, Golytely 3L completed before MN, the rest of Golytely finished around 0530,pt is kept NPO afterwards. Light yellow liquid stool with some sediments as a result. Denies n/v/abdominal pain. Distended abdomen.
[2016-09-20] MEDS: Fluticasone-Salmeterol 500-50 Inhaler INHALATION SCH ×2 (08:09→20:21)
[2016-09-20] MEDS: MeTOProlol XL 50 mg ER24 Tablet PO SCH (08:09)
--- NOTE | 2016-09-20 08:37 | PCM.HPANE ---
Patient Data Date of Service: Sep 20, 2016 Surgeon Admitting Provider:Eda Cain DO Attending Provider:Eda Cain DO Primary Care Physician:Lisha Cristina Other Provider: Reason for Visit Intractable Vomiting/Uti Ht/WT & BMI Height (Feet): 5 Height (Inches): 3.00 Weight (Kilograms): 65.000 Body Mass Index 25.00 Allergies Coded Allergies: Serotonin 5HT-3 Antagonists (Verified Allergy, Intermediate, rash, itching , 09/17/16) buspirone (Verified Allergy, Mild, itching, 09/17/16) bupropion (Verified Allergy, Unknown, Rash,Itching,, 09/17/16) sertraline (Verified Allergy, Unknown, Rash,Itching,, 09/17/16) lamotrigine (Verified Adverse Reaction, Mild, itching, 09/17/16) Past Anesthesia History Anesthesia History: Denies:: Abnormal Airway, Anesthesia Reactions, Difficult Intubation, Fam Anesthesia Reaction, Fam Malignant Hypertherm, Malignant Hyperthermia Diabetes History Hx Diabetes?: No MRSA MRSA: No Medications Blood Thinner: Aspirin Last Dose Blood Thinner: Sep 19, 2016 Hypertension Medication: Yes Home Meds Incl Beta Han: Yes Date Beta Han Taken: Sep 20, 2016 Time Beta Han Taken: 0800 Reported Medications Nicotine 21 mg/24 hr Patch 1 Each Patch.dysq1 Patch TRANSDERM DAILY Ref 0 09/17/16 Cyclobenzaprine 5 Mg Tablet5 Mg PO TID PRN Spasm 09/17/16 Budesonide/Formoterol 160-4.5 mcg Inh (Symbicort 160-4.5 mcg Inh)120 Puff Inhaler2 Puff INHALATION BID #1 INHALER Ref 0 09/17/16 Acetaminophen/Codeine 300-30mg 1 Each Tablet1-2 Tablet PO Q4H PRN Pain Ref 0 09/17/16 Atorvastatin (Lipitor)40 Mg Dhzjpo83 Mg PO HS Ref 0 09/17/16 Psyllium Husk (Metamucil)3.4 Gram/5.4 Gram Powder3.4 Gm PO DAILY PRN For Constipation 09/17/16 Prazosin 1 Mg Capsule1 Mg PO HS 09/17/16 Quetiapine Fumarate (Seroquel)50 Mg Uevrne54 Mg PO QAM Ref 0 09/17/16 Quetiapine Fumarate (Seroquel)300 Mg Swkjae546 Mg PO HS Ref 0 09/17/16 Iloperidone (Fanapt)2 Mg Tablet2 Mg PO BID 09/17/16 Lorazepam 0.5 Mg Tablet0.5-1 Mg PO BID PRN For Insomnia Ref 0 09/17/16 Ranitidine 150 Mg Sqoenrd962 Mg PO HS Ref 0 09/14/15 Venlafaxine ER 150 Mg Cap.er.58r296 Mg PO QAM Ref 0 01/19/15 Trazodone 100 Mg Gxnmrl446 Mg PO HS Ref 0 01/19/15 Omeprazole 20 Mg Capsule.dr20 Mg PO BIDAC Ref 0 01/19/15 Nitroglycerin SL (Nitrostat)0.4 Mg Tab.subl0.4 Mg SL Q5MIN PRN For Chest Pain # 1 BOTTLE 01/19/15 Metoprolol Succinate ER 50 Mg Tab.er.24h50 Mg PO QAM Ref 0 01/19/15 Loratadine (Claritin)10 Mg Ffqrgcg79 Mg PO DAILY PRN For Congestion Ref 0 01/19/15 Divalproex ER 500 Mg Tab.er.24h1,000 Mg PO HS Ref 0 *DAILY DOSING ONLY* Swallowed whole without chewing to avoid local irritation of the mouth and throat. 01/19/15 Aspirin 81 Mg Idqrja51 Mg PO QAM Ref 0 01/19/15 Albuterol Sulfate (Ventolin HFA Inhaler)200 Puff/18 Gm Inhaler2 Puff INH Q4 PRN For Wheezing #1 INHALER Ref 0 01/19/15 Discontinued Reported Medications Quetiapine Fumarate 50 Mg Xzankj14 Mg PO DAILY #30 09/17/16 Quetiapine Fumarate 300 Mg Jjxrpt308 Mg PO DAILY #30 09/17/16 Quetiapine Fumarate (Seroquel)200 Mg Rkpgqv245 Mg PO HS Ref 0 01/19/15 Lorazepam 1 Mg Tablet1 Mg PO HS PRN For Insomnia Ref 0 01/19/15 Ferrous Sulfate 325 Mg Rqdgqt540 Mg PO BID 30 Days Ref 0 01/19/15 Discontinued Scripts Azithromycin (Zithromax (Z-Wilmer))250 Mg Thmgiw176 Mg PO DIRECTED #6 TABLET Take two tablets by mouth on day 1, then take one tablet daily on days 2 through 5. Prov:Gilmar Mota MD 04/14/16 Prednisone (PredniSONE)20 Mg Jwhnco39 Mg PO DAILY 5 Days Prov:Gilmar Mota MD 04/14/16 History History of ENT Problems?: No HEENT History: Positive for:: Dysphagia Denies:: Abnormal Airway Cataracts Difficult Intubation Hearing Problem Sinus Problem Denture Type: None Teeth Condition: Within Normal Limits Hx of Heart Problems?: Yes Cardiovascular History: Positive for:: Chest Pain Heart Murmur Hypertension Irregular Heartbeat Denies:: AICD Atrial Fibrillation Cardiac Surgery Congestive Heart Failure Edema Pacemaker Thrombophlebitis Valvular Heart Disease Hx of Respiratory Problem?: Yes Respiratory History: Positive for:: Asthma COPD Cough (CURRENT HEAVY SMOKER) Dyspnea Emphysema Pneumonia Denies:: Chest Surgery Hemoptysis Tuberculosis Hx Neurologic Problems?: Yes Neurological History: Positive for:: Dizziness (INTERMITTENT) Headaches (INTERMITTENT) Seizures (YRS AGo) Denies:: Alzheimer's Disease CVA Dementia Parkinson's Disease Hx of GI Problems?: Yes Hx of Problems?: No Genitourinary History: Positive for:: Kidney Stones Urinary Tract Infection Denies:: HX of Hemodialysis HX of Peritoneal Dialysis: No Female Hx: Denies:: Currently (Hysterectomy) Endometriosis Pelvic Inflammatory Problems with Breasts? Hx Musculoskeletal Problems?: No Musculoskeletal History: Positive for:: Back Injury (R HIP PAIN) Denies:: Joint Replacement Musculoskeletal Trauma Hx of Psycho/Social Problems?: Yes Psycho Social History: Positive for:: Anxiety Bipolar Disorder Hx Depression Denies:: Suicide Attempt Hx Surgeries?: Yes (Lap kali, tonsils, hysterectomy, oophorectomy) Hx Any Other Health Problems?: Yes Other History: Positive for:: Cancer (cervical) Hospitalization Denies:: Endocrine Disease Thyroid Disease History Blood Transfusions: Positive for:: Accept Blood Products? Denies:: Blood Transfuse Reaction Blood Transfusions Hx Diabetes: No Hx Alcohol Use: Yes (Last drink 2 months)Hx Substance Use: Yes (marijuana daily, distant history of IV cocaine use) Smoking Status: Current Every Day Smoker Have You Smoked inLast 12 mo: YesApprox How Many Cigarettes/day: 4 cig/day Stop/Bang Treated for Sleep Apnea?: No Do You Have a CPAP Machine?: No S-Snoring: Do You Snore Loudly: No T-Tired: feel tired, fatigued: No O-Obsered: Observed not breath: No P-Blood Pressure: treated: Yes B- Body Mass Index > 35 kg/m2: No A- Age over 50: Yes N- Neck Large Circumference: No G- Gender Male: No LUCY Total Score: 2 LUCY Risk Assessment: Low Risk, <3 Yes Risk Assessment Category Category 1A: Patient has history of documented sleep apnea, and HAS NOT received any narcotic, sedative or anesthesia administration during this stay. Category 1B: Patient has history of documented sleep apnea, and HAS received any narcotic , sedative or anesthesia administration during this stay Category 2: Patient has SUSPECTED Obstructive Sleep Apnea, and HAS received any narcotic , sedative or anesthesia administration during this stay. Category 3: Patient has SUSPECTED Obstructive Sleep Apnea and HAS NOT received narcotic, sedative or anesthesia administration during this stay. Category 4: Outpatient in Procedural Areas with known sleep apnea or who screen positive for High Risk via the STOP/BANG questionnaire. Exam Exam Vital Signs Vital Signs Date Time Temp Pulse Resp B/P Pulse Ox O2 Delivery O2 Flow Rate FiO2 09/20/16 04:36 36.5 54 18 173/67 96 Room Air 09/20/16 02:03 36.9 64 18 122/70 90 Room Air General Appearance: Alert, Oriented X3, Cooperative, Mild Distress HEENT/AIRWAY: MP 2, Neck Movement (from), Mouth Opening (3 fb) Lungs: Clear to Auscultation, Normal Air Movement Heart: Exam Unremarkable, Regular Rate/Rhythm, No Murmurs/Rubs/Gallops Meds/Labs/Diagnostics Admission Meds Current Medications Polyethylene Glycol/ Electrolytes (Colyte) 4,000 ml ONCE ONCE PO Last administered on 09/19/16t 16:01; Start 09/19/16 at 16:00; Stop 09/19/16 at 16:01 ; Status DC Labs Test 09/17/16 14:36 09/17/16 14:54 09/17/16 15:05 09/17/16 18:21 Neutrophils (%) (Auto) 76.4% (40-74) Lymphocytes (%) (Auto) 16.0% (14-46) Monocytes (%) (Auto) 6.9% (4-12) Eosinophils (%) (Auto) 0.2% (0-5) Basophils (%) (Auto) 0.1% (0-3) Hold Purple Top Tube Received (Received) Prothrombin Time 10.2sec (8.1-12.5) Prothromb Time International Ratio 0.95ratio Hold Blue Top Tube Received (Received) Lactic Acid Level 1.7mmol/L (0.4-2.0) Hold [place] Top Tube Received (Received) Hold [place] Top Tube Received (Received) Magnesium Level 1.8mg/dL (1.6-2.6) Total Bilirubin 0.4mg/dL (0.0-1.2) Aspartate Amino Transf (AST/SGOT) 13U/L (0-50) Alanine Aminotransferase (ALT/SGPT) 9U/L (0-32) Alkaline Phosphatase 78U/L (25-150) Total Protein 7.1g/dL (6.4-8.4) Albumin 4.2g/dL (3.4-5.0) Lipase 16U/L (13-60) Urine Color Yellow (YELLOW) Urine Appearance Clear (CLEAR,HAZY) Urine pH 6.0 (5.0-8.0) Urine Specific [place] 1.026 (1.003-1.035) Urine Protein 30mg/dL (NEG,TRACE) Urine Glucose (UA) Negativemg/dL (NEGATIVE) Urine Ketones 15mg/dL (NEGATIVE) Urine Occult Blood Small (NEGATIVE) Urine Nitrite Positive (NEGATIVE) Urine Bilirubin Negative (NEGATIVE) Urine Urobilinogen Normalmg/dL (NORMAL) Urine Leukocyte Esterase Trace (NEGATIVE) Urine RBC 3-10/hpf (0-2) Urine WBC >50/hpf (0-5) Urine Epithelial Cells Moderate/hpf (NONE-MOD) Urine Crystals None seen (NONE SEEN) Urine Bacteria Many/hpf (NONE-FEW) Urine Hyaline Casts None/lpf (NONE) Urine Granular Casts None seen (NONE SEEN) Urine Waxy Casts None seen (NONE SEEN) Urine Red Blood Cell Casts None seen (NONE SEEN) Urine White Blood Cell Casts None seen (NONE SEEN) Urine Mucus None seen (None Seen) Urine Trichomonas None seen (NONE SEEN) Urine Yeast None (NONE SEEN) Urinalysis Comment None Urine Culture Reflexed Indicated Test 09/19/16 09:00 White Blood Count 9.2th/mm3 (3.8-10.1) Red Blood Count 4.11mil/mm3 (3.90-5.20) Hemoglobin 12.4g/dL (12.0-15.6) Hematocrit 37.2% (35.0-46.0) Mean Corpuscular Volume 90.5fL (81-100) Mean Corpuscular Hemoglobin 30.2pg (27.0-35.0) Mean Corpuscular Hemoglobin Concent 33.3% (32.0-37.0) Red Cell Distribution Width 14.9% (12.3-15.4) Platelet Count 259bil/L (150-400) Sodium Level 137mEq/L (134-144) Potassium Level 3.5mEq/L (3.5-5.2) Chloride Level 101mEq/L (97-108) Carbon Dioxide Level 22mmol/L (18-29) Blood Urea Nitrogen 6mg/dL (6-24) Creatinine 0.38mg/dL (0.57-1.00) Estimat Glomerular Filtration Rate 251mL/min (>59) Glucose Level 132mg/dL (60-99) Calcium Level 8.7mg/dL (8.5-10.1) Plan Impression Patient chart reviewed, patient interviewed and anesthestic plan with risks, benefits, and alternatives discussed, and informed consent obtained. NPO per Anesth. Guidelines: Yes ASA Physical Status: ASA3 Severe Disease (COPD) Anesthetic Plan: TIVA Bene/Risks/Altern/Consents: Yes HP Complete Prior to Induction: Yes Joshua Coronel MD Sep 20, 2016 08:37
[2016-09-20] MEDS ORDERED: Lactated Ringer's 1,000 ML IV ONE (08:53)
[2016-09-20] MEDS: Venlafaxine XR 75 mg ER24 Capsule PO SCH (10:24)
[2016-09-20] MEDS: Famotidine Inj 20 MG in IV Premix 1 EACH IV SCH ×2 (10:24→20:21)
--- NOTE | 2016-09-20 10:41 | PCM.ANEP1 ---
Post Anesthesia PACU Phase 1 Assessment Date of Service: Sep 20, 2016 Vital Signs Vital Signs Date Time Temp Pulse Resp B/P Pulse Ox O2 Delivery O2 Flow Rate FiO2 09/20/16 10:15 36.6 62 19 160/85 92 Room Air 09/20/16 09:50 67 16 147/84 93 Room Air 09/20/16 09:40 65 16 143/74 94 Room Air 09/20/16 09:30 57 14 126/66 99 Nasal Cannula 4 09/20/16 09:25 52 15 114/66 99 Nasal Cannula 4 09/20/16 08:45 36.1 57 16 152/88 94 Nasal Cannula 2 09/20/16 04:36 36.5 54 18 173/67 96 Room Air Anesthetic Administered: MAC Level of Alertness: Awake, talking FRY's with Equal Strength: Yes Pain: Yes Pain Scale Score: 7 Nausea or Vomiting: No CV Function & Hydration Stable: Yes Airway Device: none Oxygen Delivery: Room Air Lungs: Clear to Auscultation, Normal Air Movement Dermatome Level: Full Sensation PACU Phase 2 Assessment Complications: No Follow up Care: No Patient Instructions Provided: N/A Joshua Coronel MD Sep 20, 2016 10:41
--- NOTE | 2016-09-20 11:48 | NUR ---
Social Work-readiness for discharge: Data:EMR Reviewed. Pt is on day 3 of hospitalization for intractable vomiting per H&P. Pt is not medically stable anticipate 1-2 more days. Pt resides at home and has DAWIT caregiver assistance. Pt to have colonoscopy today. No anticipated discharge needs. SW will continue to follow if needs arise. Assessment:pt who is independent at baseline. Plan:Pt to discharge home when medically stable via POV. No anticipated discharge needs. SW will continue to follow if needs arise. ANNALISA Clark
--- NOTE | 2016-09-20 13:34 | NUR ---
Day shift report Patient alert and oriented X4. Patient independent with ambulation in room. Patient did have complaints of 8/10 headache pain and was administered Tylenol with codeine. Pain medication was effective. Patient denied nausea and vomiting this morning. Patient diet was advanced to a general diet with a fodmap diet with a list of recommended foods in chart and with patient. Patient tolerating general diet well with no further nausea or abdominal pain mentioned after lunch. Will continue to monitor.
--- NOTE | 2016-09-20 13:55 | ENDO ---
[address] [address] ENDOSCOPY PROCEDURE PATIENT: KIA MENESES : 1960 MR#: [id number] ADMIT: 09/17/2016 JOB ID: [id number] DATE OF SERVICE: 09/20/2016 PROCEDURE: Esophagogastroduodenoscopy, biopsy, colonoscopy with biopsy. PREPROCEDURE DIAGNOSIS(ES): Abnormal CAT scan, nausea vomiting, diarrhea. POSTPROCEDURE DIAGNOSIS(ES): 1. Mild nonerosive gastritis. 2. Normal colonoscopy, status post biopsy. ANESTHESIA: Monitored anesthesia care. COMPLICATIONS: None. BLOOD LOSS: Minimal. DESCRIPTION OF PROCEDURE: After risks and benefits explained to the patient, informed consent was obtained. After anesthesia was administered, an upper endoscope was inserted in the mouth, intubated the esophagus, stomach, second portion of duodenum. Mucosa carefully examined. After procedure was done, the scope withdrawn and procedure terminated. Colonoscope was inserted from the rectum to the cecum. Mucosa carefully examined. Prep of the patient to the terminal mucosa carefully examined. Prep of the patient was excellent. After procedure was done, the scope withdrawn and procedure terminated. FINDINGS: Upon inspection of the esophagus, esophagus was normal without masses, ulcers, or lesions. Z-line located at 40 cm from incisors. Upon entering stomach, there was mild nonerosive gastritis that was seen. Retroflexion was normal. No masses, ulcers, lesions seen. Duodenal bulb first and second portion were normal. Biopsies taken of the antrum and body of stomach. Upon inspection of the anus, no masses, hemorrhoids, ulcers, or fissures were seen. Throughout the entire examination, there were no polyps, masses, or lesions. The abnormal CT scan corresponding to the transverse and descending sigmoid region was normal. Biopsies taken in the terminal ileum and random colon around where the CAT scan abnormality was located. Retroflexion was normal. IMPRESSION: 1. Normal colonoscopy, status post biopsy. 2. Mild gastritis, status post biopsy. RECOMMENDATIONS: 1. Okay to start clear liquid diet. Advance to a low FODMAP diet as tolerated. 2. Bentyl 5 mg by mouth four times a day as needed. 3. Avoid marijuana. 4. Okay to discharge home from a GI perspective. [facility]
[2016-09-20] MEDS: Amoxicillin-Clav 500-125 mg Tablet PO SCH (16:51)
--- NOTE | 2016-09-20 18:05 | PCM.PNMED ---
Subjective Date of Service Sep 20, 2016 Subjective Patient is seen and examined. She states that her pain and nausea vomiting have improved today, wants to try a regular diet. She has undergone EGD and colonoscopy, without much in terms of findings. I counselled her on the need to discontinue THC/cannabinoids. Exam Vital Signs Vital Sign - Last Date Time Temp Pulse Resp B/P Pulse Ox O2 Delivery O2 Flow Rate FiO2 09/20/16 04:36 36.5 54 18 173/67 96 Room Air Intake and Output 09/19/16 09/19/16 09/20/16 Cumulative From/Thru 15:00 23:00 07:00 09/17/16 14:29 - 09/20/16 04:39 Intake Total 500 ml 800 ml 527 ml 2947 ml Output Total 650 ml 751 ml 661 ml 3337 ml Balance -150 ml 49 ml -134 ml -390 ml Intake Oral 500 ml 800 ml 400 ml 1820 ml IV Total 127 ml 1127 ml Output Urine Total 550 ml 750 ml 650 ml 2275 ml Stool Total 1 ml 11 ml 12 ml Urine/Stool Mix 100 ml 1025 ml Emesis 25 ml Exam Gen.: No acute distress HEENT normocephalic, atraumatic, esotropic, Extraocular movements are intact Heart: Regular rate and rhythm no S3-S4 murmurs Lungs: Clear to auscultation no crackles or wheezes Abdomen: Mildly obese, normal bowel sounds, no tender and non-tenderness to palpation Extremities no edema Neuro no focal deficits psych: patient is a pleasant mood IVs and Medications IV Fluids Discontinued Medications Reviewed: Medications were reviewed in detail Lab and Diagnostics Result Diagram: 09/19/16 0900 09/19/16 0900 X-Rays, CTs and MRIs CT Abd / Pelvis Interpretation IMPRESSION: 1. ? Mild diffuse colonic wall thickening involving the proximal transverse colon and possibly sigmoid colon. In absence of oral contrast, the finding could be caused by artifact due to like of distention. Recommend clinical correlation. 2. Normal appendix. 3. Diverticulosis. No active diverticulitis. 4. Small hiatal hernia. 5. Mild hepatic steatosis. 6. A 4 mm right adrenal nodule, most likely benign. 12-lead ECG Normal ECG Interpretation: No acute ischemic changes Assessment & Plan 55 y/o female with h/o IBS admitted with intractable nausea and vomiting. Epigastric pain, POA resolved -- Review prior EGD, colonoscopy reports 08/2015: Normal upper endoscopy, status post biopsy. -- Consult Dr. Vences: He will repeat scope in the AM -- Pharmacy switched her to Pepcid IV due to Protonix shortage -- Advised her to stop using cannabinoids continue Pepcid or a PPI at discharge Nausea / vomiting / diarrhea due to THC, POA active: -- IBS vs colitis (infectious vs inflamm) vs diverticulosis DDX were considered and ruled out -- Leukocytosis but no fevers. -- CT showed sigmoid and transverse colitis -- 09/05 colonoscopy: Sigmoid diverticulosis, Small internal hemorrhoids. One cm sigmoid polyp removed by hot snare polypectomy. - stool cultures, ova and parasites are neg - anti emetics prn -- GI/Dr. Vences has performed a colonoscopy: No significant findings -- Advised her to stop using cannabinoids continue Pepcid or omeprazole at discharge UTI, POA active -- She is endorsing increased freq and hesitancy -- URine cx showed klebsiella -- Ceftriaxone 1 g Q24H was givne initially -- Follow sensitivities: Sensitive to Ceftriaxon and augmentin switched patient to Augmentin by mouth 09/19 -- d/c on 5 more days of augmentin -- Hypertension chronic stable -- Continue home meds Anxiety/Depression chronic active -- Cont home meds DVT ppx: Heparin GI ppx: PPI Patient Status: Patient was admitted under inpatient status with expected length of stay greater than two midnights due to severity of presenting symptoms , risk of adverse event, and complexity of treatment plan. Pain Evaluation: Adequate Pain Control GI Prophylaxis: Proton Pump Inhibitor VTE Prophylaxis: Sub-Q Heparin (Unfractionated) VTE Mechanical Devices: Intermittant Pneumatic CD Resuscitation Status: CPR: Attempt Resuscitation Time spent 25 minutes Eda Cain DO Sep 20, 2016 07:34
[2016-09-20] MEDS: Divalproex (QD) 500 mg ER24 Tablet PO SCH (20:20)
[2016-09-21 04:48] VITALS: BP 107/70; PULSE 66; RESP 16; O2SAT 94
--- NOTE | 2016-09-21 07:00 | NUR ---
Pain Patient reported headache pain 7/10. given tylenol with codeine. patient reports no pain. Up ambulating hallway throughout the night. Patient states She is ready to go home. will continue to monitor. IV infiltrated. patient hard IV start. IV therapy paged for assistance.
[2016-09-21] MEDS: MeTOProlol XL 50 mg ER24 Tablet PO SCH (07:47)
[2016-09-21] MEDS: Amoxicillin-Clav 500-125 mg Tablet PO SCH (07:47)
[2016-09-21] MEDS: Codeine-APAP 30-300 mg Tablet PO PRN (07:48)
[2016-09-21] MEDS: Heparin 5,000 Unit/mL Inj SUBQ SCH (07:48)
[2016-09-21] MEDS: Fluticasone-Salmeterol 500-50 Inhaler INHALATION SCH (07:48)
[2016-09-21] MEDS: Venlafaxine XR 75 mg ER24 Capsule PO SCH (07:48)
[2016-09-21] MEDS ORDERED: AMOX1TAB11 PO (08:04)
[2016-09-21] MEDS ORDERED: DICY10CA13 PO (08:05)
[2016-09-21] MEDS: Famotidine Inj 20 MG in IV Premix 1 EACH IV SCH (08:30)
--- NOTE | 2016-09-21 08:40 | PCM.PNSURG ---
Subjective Date of Service: Sep 21, 2016 Date of Service: Sep 21, 2016 Visit Information: Subjective: No acute events overnight. pt reports 1bm overnight. no further n/v. s/p egd/ colon yesterday Postop General: No Complaints Objective Vital Sign- Last 8 Hours Date Time Temp Pulse Resp B/P Pulse Ox O2 Delivery O2 Flow Rate FiO2 09/21/16 04:48 36.8 66 16 107/70 94 Room Air Intake and Output- Last 8 Hour 09/21/16 Cumulative From/Thru 07:00 09/17/16 14:29 - 09/21/16 04:49 Intake Total 800 ml 4957 ml Output Total 650 ml 5762 ml Balance 150 ml -805 ml Intake Oral 800 ml 3470 ml IV Total 1487 ml Output Urine Total 650 ml 3900 ml Stool Total 12 ml Urine/Stool Mix 1825 ml Emesis 25 ml General: Oriented X3 Neck: Supple Lungs: Clear to Auscultation Heart: Exam Unremarkable Abdomen: Benign, Soft, Non-tender, Non-distended, Normoactive bowel tones Extremities: Distal Pulses Palpable Result Diagram: 09/19/16 0900 09/19/16 0900 Assessment & Plan Impression 55-year-old female with IBS, GERD, tobacco and marijuana use who presents with vomiting, diarrhea, and severe abdominal pain. Stool PCR is negative making this unlikely to be due to infectious etiology. Her chronic cyclical diarrhea and constipation likely related to IBS. Tubular adenoma status post polypectomy present on colonoscopy 1 year ago. Normal EGD at that time. Melena could be due to upper or lower GI bleed. Vomiting could be present due to GERD, migraine associated, or exacerbated by daily marijuana use. She may have some element of gastroparesis as she has had some elevated blood sugars while being here in the hospital even though she has not formally been diagnosed with diabetes or pre diabetes. Pt sx most likely from marijuana induced cyclic nausea/vomit along with ibs-d. s/p egd/colon 09/20/2016- gastritis, nl colon bx Recommendations: 1. low fodmap diet 2. bentyl prn 3. stop marijuana 4. ok to d/c home today from gi perspective will sign off Problems: VTE Prophylaxis: Sub-Q Heparin (Unfractionated) Resuscitation Status: CPR: Attempt Resuscitation Marcus Vences MD Sep 21, 2016 08:40
--- NOTE | 2016-09-21 09:10 | NUR ---
SUKHDEV signed. ANNALISA Clark
--- NOTE | 2016-09-21 09:17 | PCM.DIMED ---
Discharge Instructions Date of Service Sep 21, 2016 Dates of Hospitalization Sep 17, 2016 at 21:44 Discharge Diagnosis Discharge Diagnosis Cannabinoid use syndrome, Irritable bowel syndrome, Hyperglycemia Diet Discharge Diet: Other (fodmap diet) Activity Discharge Activity: No restrictions Call your provider Call your provider for: Fever or Chills, Shortness of breath, Bleeding, Chest pain, Vomitting, Excessive diarrhea, Weakness (unilateral), Other Patient Instructions Patient Instructions Please follow fodmap diet. Discontinue cannabinoids Bentyl for IBS related pain Follow-up plan Please f/u with Dr. Marta SULLIVAN in 4 weeks F/U Ms. Lisha Cristina in one week Eda Cain DO Sep 21, 2016 09:17
--- NOTE | 2016-09-21 09:18 | PCM.DC.MED ---
Discharge Summary Date of Service Sep 21, 2016 Dates of Hospitalization Date of Hospital Admission Sep 17, 2016 at 21:44 Date of Discharge: Sep 21, 2016 Providers: Admitting Physician: Dano Villa DO Primary Care Physician: Lisha Cristina Attending Physician: Dano Villa DO Diagnosis at Time of Discharge Diagnosis at Time of Discharge Cannabinoid use syndrome, Irritable bowel syndrome, Hyperglycemia Consultations GI Procedures XRay, CTs & MRIs CT Abd / Pelvis Interpretation IMPRESSION: 1. ? Mild diffuse colonic wall thickening involving the proximal transverse colon and possibly sigmoid colon. In absence of oral contrast, the finding could be caused by artifact due to like of distention. Recommend clinical correlation. 2. Normal appendix. 3. Diverticulosis. No active diverticulitis. 4. Small hiatal hernia. 5. Mild hepatic steatosis. 6. A 4 mm right adrenal nodule, most likely benign. ECG 12 Lead Normal ECG Interpretation: No acute ischemic changes Brief History GASTROENTEROLOGY CONSULTATION 55 yo female with IBS, GERD, diverticulits, and daily marijuana use presented to the emergency department with worsening nausea, vomiting, diarrhea. She states that similar symptoms have been going on for a few years periodically. She is having symptoms more often than not and having cycles of diarrhea and constipation. She witnessed some melena just prior to this hospitalization. She had very small amount of red blood during one episode of emesis. She is having sharp epigastric pain that bhatt upward along midline. She endorses headache, difficulty swallowing, heartburn, chills, sweats, but no fever. She has had decreased appetite and will at times go up to 2 weeks without eating. She has had some episodes of bowel incontinence. She is feeling better with medication since being in the hospital, her last episode of emesis was 2 nights ago (the night of her arrival). She was found to have a UTI. Hospital Course 55 y/o female with h/o IBS admitted with intractable nausea and vomiting. Epigastric pain, POA resolved -- Review prior EGD, colonoscopy reports 08/2015: Normal upper endoscopy, status post biopsy. -- Consult Dr. Vences: He will repeat scope in the AM -- Pharmacy switched her to Pepcid IV due to Protonix shortage -- Advised her to stop using cannabinoids continue Pepcid or a PPI at discharge -- She can continue Tylenol 3 daily as yet until her pain completely resolves Nausea / vomiting / diarrhea due to THC, POA active: -- IBS vs colitis (infectious vs inflamm) vs diverticulosis DDX were considered and ruled out -- Leukocytosis but no fevers. -- CT showed sigmoid and transverse colitis -- 09/05 colonoscopy: Sigmoid diverticulosis, Small internal hemorrhoids. One cm sigmoid polyp removed by hot snare polypectomy. - stool cultures, ova and parasites are neg - anti emetics prn -- GI/Dr. Vences has performed a colonoscopy: No significant findings -- Advised her to stop using cannabinoids continue Pepcid or omeprazole at discharge -- Bentyl script is given UTI, POA active -- She is endorsing increased freq and hesitancy -- URine cx showed klebsiella -- Ceftriaxone 1 g Q24H was givne initially -- Follow sensitivities: Sensitive to Ceftriaxon and augmentin switched patient to Augmentin by mouth 09/19 -- d/c on 5 more days of augmentin, we recommended that she takes probiotics Hypertension chronic stable -- Continue home meds Anxiety/Depression chronic active -- Cont home meds Headaches, POA improving: -- She is finding the same medication she is on in the hospital for epigastric pain Tylenol 3 to be relieving her headaches. DVT ppx: Heparin GI ppx: PPI Patient Status: Patient was admitted under inpatient status with expected length of stay greater than two midnights due to severity of presenting symptoms , risk of adverse event, and complexity of treatment plan. Exam Vital Signs (Last) Date Time Temp Pulse Resp B/P Pulse Ox O2 Delivery O2 Flow Rate FiO2 09/21/16 04:48 36.8 66 16 107/70 94 Room Air 09/20/16 09:30 4 Exam Gen.: No acute distress Eyes mild esotropia Heart: Regular rate and rhythm no S3-S4 sounds Lungs clear to auscultation bilaterally no crackles or wheezes Abdomen she does have a rather obese abdomen for her size, it appears to be no different today and she does have bowel sounds in all 4 quadrants, mild tenderness over epigastrium and left lower quadrant Extremities no edema Psychiatric no agitation or anxiety No focal Neurological deficits Test 09/17/16 14:36 09/17/16 14:54 09/17/16 15:05 09/17/16 18:21 Neutrophils (%) (Auto) 76.4% (40-74) Lymphocytes (%) (Auto) 16.0% (14-46) Monocytes (%) (Auto) 6.9% (4-12) Eosinophils (%) (Auto) 0.2% (0-5) Basophils (%) (Auto) 0.1% (0-3) Hold Purple Top Tube Received (Received) Prothrombin Time 10.2sec (8.1-12.5) Prothromb Time International Ratio 0.95ratio Hold Blue Top Tube Received (Received) Lactic Acid Level 1.7mmol/L (0.4-2.0) Hold Ray Top Tube Received (Received) Hold [place] Top Tube Received (Received) Magnesium Level 1.8mg/dL (1.6-2.6) Total Bilirubin 0.4mg/dL (0.0-1.2) Aspartate Amino Transf (AST/SGOT) 13U/L (0-50) Alanine Aminotransferase (ALT/SGPT) 9U/L (0-32) Alkaline Phosphatase 78U/L (25-150) Total Protein 7.1g/dL (6.4-8.4) Albumin 4.2g/dL (3.4-5.0) Lipase 16U/L (13-60) Urine Color Yellow (YELLOW) Urine Appearance Clear (CLEAR,HAZY) Urine pH 6.0 (5.0-8.0) Urine Specific Wall 1.026 (1.003-1.035) Urine Protein 30mg/dL (NEG,TRACE) Urine Glucose (UA) Negativemg/dL (NEGATIVE) Urine Ketones 15mg/dL (NEGATIVE) Urine Occult Blood Small (NEGATIVE) Urine Nitrite Positive (NEGATIVE) Urine Bilirubin Negative (NEGATIVE) Urine Urobilinogen Normalmg/dL (NORMAL) Urine Leukocyte Esterase Trace (NEGATIVE) Urine RBC 3-10/hpf (0-2) Urine WBC >50/hpf (0-5) Urine Epithelial Cells Moderate/hpf (NONE-MOD) Urine Crystals None seen (NONE SEEN) Urine Bacteria Many/hpf (NONE-FEW) Urine Hyaline Casts None/lpf (NONE) Urine Granular Casts None seen (NONE SEEN) Urine Waxy Casts None seen (NONE SEEN) Urine Red Blood Cell Casts None seen (NONE SEEN) Urine White Blood Cell Casts None seen (NONE SEEN) Urine Mucus None seen (None Seen) Urine Trichomonas None seen (NONE SEEN) Urine Yeast None (NONE SEEN) Urinalysis Comment None Urine Culture Reflexed Indicated Test 09/19/16 09:00 White Blood Count 9.2th/mm3 (3.8-10.1) Red Blood Count 4.11mil/mm3 (3.90-5.20) Hemoglobin 12.4g/dL (12.0-15.6) Hematocrit 37.2% (35.0-46.0) Mean Corpuscular Volume 90.5fL (81-100) Mean Corpuscular Hemoglobin 30.2pg (27.0-35.0) Mean Corpuscular Hemoglobin Concent 33.3% (32.0-37.0) Red Cell Distribution Width 14.9% (12.3-15.4) Platelet Count 259bil/L (150-400) Sodium Level 137mEq/L (134-144) Potassium Level 3.5mEq/L (3.5-5.2) Chloride Level 101mEq/L (97-108) Carbon Dioxide Level 22mmol/L (18-29) Blood Urea Nitrogen 6mg/dL (6-24) Creatinine 0.38mg/dL (0.57-1.00) Estimat Glomerular Filtration Rate 251mL/min (>59) Glucose Level 132mg/dL (60-99) Calcium Level 8.7mg/dL (8.5-10.1) Discharge Medications Discharge Medications Amoxicillin/Clav K 500-125 mg (Amoxicillin/Clav K 500-125 mg) 1 Each Tablet 1 TAB PO BIDWM Prescribed by: DANO VILLA DO Aspirin (Aspirin) 81 Mg Tablet 81 MG PO QAM (Reported) Atorvastatin (Lipitor) 40 Mg Tablet 40 MG PO HS (Reported) Budesonide/Formoterol 160-4.5 mcg Inh (Symbicort 160-4.5 mcg Inh) 120 Puff Inhaler 2 PUFF INHALATION BID (Reported) Divalproex ER (Divalproex ER) 500 Mg Tab.er.24h 1,000 MG PO HS (Reported) *DAILY DOSING ONLY* Swallowed whole without chewing to avoid local irritation of the mouth and throat. Iloperidone (Fanapt) 2 Mg Tablet 2 MG PO BID (Reported) Metoprolol Succinate ER (Metoprolol Succinate ER) 50 Mg Tab.er.24h 50 MG PO QAM (Reported) Nicotine 21 mg/24 hr Patch (Nicotine 21 mg/24 hr Patch) 1 Each Patch.dysq 1 PATCH TRANSDERM DAILY (Reported) Omeprazole (Omeprazole) 20 Mg Capsule.dr 20 MG PO BIDAC (Reported) Prazosin (Prazosin) 1 Mg Capsule 1 MG PO HS (Reported) Quetiapine Fumarate (Seroquel) 300 Mg Tablet 300 MG PO HS (Reported) Quetiapine Fumarate (Seroquel) 50 Mg Tablet 50 MG PO QAM (Reported) Ranitidine (Ranitidine) 150 Mg Capsule 150 MG PO HS (Reported) Trazodone (Trazodone) 100 Mg Tablet 400 MG PO HS (Reported) Venlafaxine ER (Venlafaxine ER) 150 Mg Cap.er.24h 300 MG PO QAM (Reported) As needed Acetaminophen/Codeine 300-30mg (Acetaminophen/Codeine 300-30mg) 1 Each Tablet 1- 2 TABLET PO Q4H PRN PRN Pain (Reported) Acetaminophen/Codeine 300-30mg (Tylenol/Codeine #3) 1 Each Tablet 1 TABLET PO Q4H PRN PRN Pain Prescribed by: DANO VILLA DO Albuterol Sulfate (Ventolin HFA Inhaler) 200 Puff/18 Gm Inhaler 2 PUFF INH Q4 PRN PRN For Wheezing (Reported) Cyclobenzaprine (Cyclobenzaprine) 5 Mg Tablet 5 MG PO TID PRN PRN Spasm ( Reported) Dicyclomine (Dicyclomine) 10 Mg Capsule 10 MG PO QID PRN PRN For GI Cramps Prescribed by: DANO VILLA DO Loratadine (Claritin) 10 Mg Capsule 10 MG PO DAILY PRN PRN For Congestion ( Reported) Lorazepam (Lorazepam) 0.5 Mg Tablet 0.5-1 MG PO BID PRN PRN For Insomnia ( Reported) Nitroglycerin SL (Nitrostat) 0.4 Mg Tab.subl 0.4 MG SL Q5MIN PRN PRN For Chest Pain (Reported) Psyllium Husk (Metamucil) 3.4 Gram/5.4 Gram Powder 3.4 GM PO DAILY PRN PRN For Constipation (Reported) Followup Plan Follow-up plan Please f/u with Dr. Marta SULLIVAN in 4 weeks F/U Ms. Lisha Cristina in one week Discharge Diet: Other (fodmap diet) Discharge Activity: No restrictions Patient Instructions Please follow fodmap diet. Discontinue cannabinoids Bentyl for IBS related pain Time spent Greater than 30 minutes Dano Villa DO Sep 21, 2016 09:18
[2016-09-21] MEDS ORDERED: ACET1TAB12 PO (09:24)
[2016-09-21] MEDS ORDERED: Pantoprazole 20 mg ER24 Tablet PO ONE (09:25)
--- NOTE | 2016-09-21 09:54 | NUR ---
Discharge Patient given discharge orders. Patient given medication list with written instructions when next dose is due. Patient given hard copies of prescriptions and printed information on new medications. Patient given follow up instructions. Patient waiting for taxi for discharge.
--- NOTE | 2016-09-21 10:06 | NUR ---
Social Work-discharge: Data:EMR Reviewed. Pt is on day 4 of hospitalization for intractable vomiting per H&P. Pt is medically stable for discharge. Pt has been been up independent in her room. Pt has DAWIT at home. Pt requested assistance with taxi ride home. SW reviewed the chart, pt did arrive via EMS. SW called [employer] and set up medicaid taxi for 1100. SW updated pt and RN. Pt will need to be in the main lobby. All updated and agreeable to plan. Assessment:pt who is independent at baseline. Plan:Pt to discharge home today via Medicaid taxi at 1100.Pt to continue with DAWIT at home. No other SW needs. All updated and agreeable to plan. ANNALISA Clark
--- NOTE | 2016-09-21 23:23 | PCM.PNMED ---
Subjective Date of Service Sep 18, 2016 Subjective Patient is endorsing one round of nausea and 2-3 episodes of diarrhea this morning, today the pain is in the LLQ and epigastrium. No other concerns Exam Vital Signs Vital Sign - Last Date Time Temp Pulse Resp B/P Pulse Ox O2 Delivery O2 Flow Rate FiO2 09/18/16 05:13 36.8 70 20 149/80 90 Room Air Intake and Output 09/17/16 09/17/16 09/18/16 Cumulative From/Thru 15:00 23:00 07:00 09/17/16 14:29 - 09/18/16 06:51 Intake Total 1000 ml 0 ml 1000 ml Output Total 475 ml 475 ml Balance 1000 ml -475 ml 525 ml Intake Oral 0 ml 0 ml IV Total 1000 ml 1000 ml Output Urine Total 325 ml 325 ml Urine/Stool Mix 125 ml 125 ml Emesis 25 ml 25 ml Exam Gen.: No acute distress lying in bed HEENT: Heart: Regular rate and rhythm, no S3-S4 murmurs Lungs: Clear to auscultation no crackles or wheezes Abdomen palpable tenderness in the LLQ and over the epigastrium, and normal bowel sounds negative organomegaly Neck: Negative for JVD, trachea central Skin warm and dry Neuro no focal deficits Psychiatric negative for anxiety Lab and Diagnostics Result Diagram: 09/17/16 1436 09/17/16 1505 X-Rays, CTs and MRIs CT Abd / Pelvis Interpretation IMPRESSION: 1. ? Mild diffuse colonic wall thickening involving the proximal transverse colon and possibly sigmoid colon. In absence of oral contrast, the finding could be caused by artifact due to like of distention. Recommend clinical correlation. 2. Normal appendix. 3. Diverticulosis. No active diverticulitis. 4. Small hiatal hernia. 5. Mild hepatic steatosis. 6. A 4 mm right adrenal nodule, most likely benign. 12-lead ECG Normal ECG Interpretation: No acute ischemic changes Assessment & Plan 55 y/o female with h/o IBS admitted with intractable nausea and vomiting. Epigastric pain, POA active -- Review prior EGD, colonoscopy reports 08/2015: Normal upper endoscopy, status post biopsy. -- Consult Dr. Vences from GI if needed: Discussed case with Dr. Stone will see the patient, he mentions to me that he might scope the patient 09/20 -- Nausea / vomiting / diarrhea, POA active: IBS vs colitis (infectious vs inflamm ) vs diverticulosis -- Leukocytosis but no fevers. -- CT showed sigmoid and transverse colitis -- 09/05 colonoscopy: Sigmoid diverticulosis, Small internal hemorrhoids. One cm sigmoid polyp removed by hot snare polypectomy. - Clear liquids - IV hydration - Will send stool cultures, ova and parasites - anti emetics prn UTI, POA active -- She is endorisng increased freq and hesitancy -- URine cx showed e coli -- Ceftriaxone 1 g Q24H -- Follow sensitivities: Urine cultures for Klebsiella sensitive to ceftriaxone , Augmentin by mouth for discharge -- Hypertension chronic stable -- Continue home meds Anxiety/Depression chronic active -- Cont home meds DVT ppx: Heparin GI ppx: PPI Pain Evaluation: Adequate Pain Control GI Prophylaxis: Proton Pump Inhibitor VTE Prophylaxis: Sub-Q Heparin (Unfractionated) Resuscitation Status: CPR: Attempt Resuscitation Time spent 25 min GI Prophylaxis: Proton Pump Inhibitor VTE Prophylaxis: Sub-Q Heparin (Unfractionated) Resuscitation Status: CPR: Attempt Resuscitation Time spent 25 min Eda Cain DO Sep 18, 2016 08:11
--- NOTE | 2016-09-24 16:06 | PATH ---
SURGICAL PATHOLOGY Attending Physician:Marcus Vences MD CASE STATUS: Signed Out PATIENT NAME: KIA MENESES PID: [id number] : 1960 DATE COLLECTED:09/20/2016 00:00 SPECIMEN: 1: Duodenum, Biopsy 2: Stomach, Antrum, Biopsy 3: Gastric, Biopsy 4: Ileum, Biopsy 5: Colon, Biopsy CLINICAL HISTORY: 1. DUODENUM BXS 2. ANTRUM BXS 3. GASTRIC BODY BXS R/O H.PYLORI 4. TERMINAL ILEUM BXS 5. RANDOM COLON BXS (FROM TRANSVERSE,DESCENDING AND SIGMOID COLON) FINAL DIAGNOSIS: 1. Duodenum, Biopsy: Duodenal mucosa with no diagnostic abnormality. Negative for active inflammation, features of sprue, dysplasia, and malignancy. 2. Antrum, Biopsy: Portions of gastric antral-type mucosa with mild chronic gastritis. No definite H. pylori organisms identified by H&E stain. Immunohistochemistry studies pending; results will be reported as an addendum. Negative for intestinal metaplasia, dysplasia, and malignancy. 3. Gastric Body, Biopsies: Portions of gastric body-type mucosa with no diagnostic abnormality. No definite H. pylori organisms identified by H&E stain. Immunohistochemistry studies pending; results will be reported as an addendum. Negative for intestinal metaplasia, dysplasia, and malignancy. 4. Terminal Ileum, Biopsies: Superficial portions of small bowel mucosa with no diagnostic abnormality. Negative for dysplasia and malignancy. 5. Random Colon Biopsies (Transverse, Descending, and Sigmoid Colon): Superficial portions of colorectal mucosa with occasional prominent lymphoid aggregates and no diagnostic abnormality. Negative for active, chronic, and microscopic colitis. Negative for dysplasia and malignancy. ICD10: K29.7 GROSS DESCRIPTION: 1. Received in formalin, labeled with the patient's name and "duodenum BX" is one fragment of avina soft tissue measuring 0.2 x 0.2 x 0.1 cm. The fragment is totally submitted in cassette 1A. 2. Received in formalin, labeled with the patient's name and "antrum biopsy" is one fragment of avina soft tissue measuring 0.4 x 0.2 x 0.1 cm. The fragment is totally submitted in cassette 2A. 3. Received in formalin, labeled with the patient's name and "gastric body biopsies" are two fragments of avina soft tissue ranging in size from 0.1 x 0.1 x 0.1 cm to 0.2 x 0.1 x 0.1 cm. All fragments are totally submitted in cassette 3A. 4. Received in formalin, labeled with the patient's name and "terminal ileum BX" is one fragment of avina soft tissue measuring 0.3 x 0.2 x 0.2 cm. The fragment is totally submitted in cassette 4A. 5. Received in formalin, labeled with the patient's name and "random colon BX" are multiple fragments of avina soft tissue ranging in size from 0.1 x 0.1 x 0.1 cm to 0.2 x 0.2 x 0.2 cm. All fragments are totally submitted in cassette 5A. ([id number]) ICD-9 CODES: CPT CODES: 1: 18091 2: 17312, 15590 3: 12330, 79837 4: 29994 5: 09797 PROCEDURE/ADDENDA: Addendum SPI Addendum Diagnosis 2. Gastric Antrum: Negative for H. pylori organisms by immunohistochemistry studies. 3. Gastric Biopsy: Negative for H. pylori organisms by immunohistochemistry studies. Addendum Comment * This test was developed and its performance characteristics determined by [employer] [facility]. It has not been cleared or approved by the [place]. Food and Drug Administration. The FDA has determined that such clearance or approval is not necessary. This test is used for clinical purposes. It should not be regarded as investigational or for research. Electronically Signed Out Beverley Page MD Electronically Signed Out Beverley Page MD [facility] [address], [place] [address] Technical component performed at [facility], [address], [place], [address]
== END 2016-09-21 10:50 | disposition home or self-care (01) | DRG 392 ==
LOC: SED 14:23 → OBSVTOIN 21:44 → MPC 21:44
PROVIDERS: ADMIT Family Medicine; ATTEND Internal Medicine
PROC: 0DBM8ZX Excision of Descending Colon, Via Natural or Artificial Opening Endoscopic, Diagnostic (ICD-10-PCS; 2016-09-20)
PROC: 0DBL8ZX Excision of Transverse Colon, Via Natural or Artificial Opening Endoscopic, Diagnostic (ICD-10-PCS; 2016-09-20)
PROC: 0DBN8ZX Excision of Sigmoid Colon, Via Natural or Artificial Opening Endoscopic, Diagnostic (ICD-10-PCS; 2016-09-20)
PROC: 0DBB8ZX Excision of Ileum, Via Natural or Artificial Opening Endoscopic, Diagnostic (ICD-10-PCS; 2016-09-20)
PROC: 0DB98ZX Excision of Duodenum, Via Natural or Artificial Opening Endoscopic, Diagnostic (ICD-10-PCS; principal; 2016-09-20 09:00)
PROC: 0DB68ZX Excision of Stomach, Via Natural or Artificial Opening Endoscopic, Diagnostic (ICD-10-PCS; 2016-09-20 09:00)
DX: K58.0 Irritable bowel syndrome with diarrhea (principal); N39.0 Urinary tract infection, site not specified; F12.229 Cannabis dependence with intoxication, unspecified; K21.9 Gastro-esophageal reflux disease without esophagitis; I10 Essential (primary) hypertension; F17.200 Nicotine dependence, unspecified, uncomplicated; E86.0 Dehydration; F41.8 Other specified anxiety disorders; K29.70 Gastritis, unspecified, without bleeding; B96.1 Klebsiella pneumoniae [K. pneumoniae] as the cause of diseases classified elsewhere; Z79.51 Long term (current) use of inhaled steroids; Z79.82 Long term (current) use of aspirin